=== PATIENT | female | born 1990 | race Caucasian/White ===

== ENCOUNTER → 2019-03-30 | Emergency (ER) | payer OTHER ==
[~2019-03-30] VITALS: Ht 165.1 cm; Wt 61.2 kg
[~2019-03-30] MED LIST: KETOROLAC TROMETHAMINE INJ 60 MG/2 ML VIAL IM ONE; oxyCODONE/APAP (5/325 MG) 1 UDTAB TABLET ONE; oxyCODONE/APAP (5/325 MG) 1 UDTAB TABLET PO ONE
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
[2019-03-30 16:45] VITALS: BP 105/65
--- NOTE | 2019-03-30 16:46 | NUR ---
Patient discharged to home in stable condition. Written and verbal after care instructions given. Patient verbalizes understanding of instruction.PT LEFT ER AMBULATORY ACCOMPANIED BY FRIEND IN STABLE CONDITION .
== END | disposition home or self-care (01) ==
LOC: ER 14:24
DX: S23.3XXA Sprain of ligaments of thoracic spine, initial encounter (principal); S20.212A Contusion of left front wall of thorax, initial encounter; Z60.2 Problems related to living alone; V49.49XA Driver injured in collision with other motor vehicles in traffic accident, initial encounter; Y93.89 Activity, other specified; Y92.413 State road as the place of occurrence of the external cause; Y99.8 Other external cause status
CPT/HCPCS: 71045; 84703; 96372; 99284; J1885